=== PATIENT | female | born 1955 | race Caucasian/White ===

== ENCOUNTER 2024-07-27 08:45 | Day surgery (SDC) | payer MEDICARE, BC ==
[2024-06-29 13:24] VITALS: BP 122/76
[~2024-07-27] VITALS: Ht 157.5 cm; Wt 50.0 kg
[~2024-07-27 08:45] MED LIST: CALCIUM GLUCONA60 M1 PO; CEFAZOLIN SODIUM 2 GM/20 ML SYR IV SCH; DEXAMETHASONE SOD PHOS 4 MG/ML VIAL ONE; ESTRACE0.5 MG PO; FAMOTIDINE 20 MG/ 2 ML VIAL ONE; IBLOOD GLUCOSE TEST STRIP 1 EA TEST VI PRN; KETOROLAC TROMETHAMINE 30 MG/ML VIAL ONE; LACTATED RINGER'S 1,000 ML IV ONE; LACTATED RINGER'S 1,000 ML IV SCH; LIDOCAINE HCL 1% 5 ML SDV INJ ONE; METOCLOPRAMIDE HCL 10 MG/2 ML SDV IV PRN; MORPHINE SULFATE 10 MG/ML VIAL IV PRN; MORPHINE SULFATE 4 MG/ML VIAL IV PRN; NALOXONE HCL 0.4 MG SYR IV PRN; OXYBUTYNIN CHLOR5 M1 PO; OXYCODONE/APAP 5/325 TAB PO PRN; PROCHLORPERAZINE EDISYLATE 10 MG/2 ML VIAL IV PRN; PROGESTERONE100 MG PO; PROLIA60 MG/1 ML SUB-Q; TEMAZEPAM15 MG PO; VENLAFAXINE H37.5 MG PO; droPERidol 5 MG/2 ML VIAL IV PRN; fentaNYL citrate 100 MCG/2 ML VIAL ONE; fentaNYL citrate 50 MCG/ML SDV IV PRN; ondansetron HCL 4 MG TAB PO PRN; ondansetron HCL 4 MG/2 ML VIAL IV PRN; ondansetron HCL 4 MG/2 ML VIAL ONE; propofoL 200 MG/20 ML VIAL ONE
[2024-07-27 09:05] VITALS: BP 112/68
[2024-07-27 14:19] VITALS: BP 98/60
--- NOTE | 2024-07-27 14:25 | NUR ---
07/27/24 1425 Yajaira Chin 1354 PT ARRIVED IN PACU NON RESPONSIVE TO NOXIOUS STIMULI WITH OPA IN PLACE. 1356 PT REACTIVE. OPA REMOVED. 1400 PT AWAKE AND TALKING TO STAFF. 1410 AXONICS REP AT BEDSIDE WITH PT'S SISTER.
== END 2024-07-27 14:45 | disposition home or self-care (01) ==
LOC: DS 08:45
PROVIDERS: ATTEND Urology
PROC: 01HY3MZ Insertion of Neurostimulator Lead into Peripheral Nerve, Percutaneous Approach (ICD-10-PCS; principal; 2024-07-27 10:30)
DX: N32.81 Overactive bladder (principal); N39.46 Mixed incontinence; E78.5 Hyperlipidemia, unspecified; G43.909 Migraine, unspecified, not intractable, without status migrainosus; Z79.899 Other long term (current) drug therapy; Z88.0 Allergy status to penicillin; Z88.2 Allergy status to sulfonamides
CPT/HCPCS: 00300; 76000; C1778; C1889; C1897; J0690; J1100; J1885; J2405; J2704; J3010; J7121

== ENCOUNTER 2024-08-10 08:30 | Day surgery (SDC) | payer MEDICARE, BC ==
[~2024-08-10] VITALS: Ht 157.5 cm; Wt 52.3 kg
[~2024-08-10 08:30] MED LIST changes: -DEXAMETHASONE SOD PHOS 4 MG/ML VIAL ONE; -FAMOTIDINE 20 MG/ 2 ML VIAL ONE; -KETOROLAC TROMETHAMINE 30 MG/ML VIAL ONE; -LACTATED RINGER'S 1,000 ML IV ONE; -METOCLOPRAMIDE HCL 10 MG/2 ML SDV IV PRN; -MORPHINE SULFATE 10 MG/ML VIAL IV PRN; -MORPHINE SULFATE 4 MG/ML VIAL IV PRN; -NALOXONE HCL 0.4 MG SYR IV PRN; -OXYCODONE/APAP 5/325 TAB PO PRN; -PROCHLORPERAZINE EDISYLATE 10 MG/2 ML VIAL IV PRN; -droPERidol 5 MG/2 ML VIAL IV PRN; -fentaNYL citrate 100 MCG/2 ML VIAL ONE; -fentaNYL citrate 50 MCG/ML SDV IV PRN; -ondansetron HCL 4 MG TAB PO PRN; -ondansetron HCL 4 MG/2 ML VIAL IV PRN; -ondansetron HCL 4 MG/2 ML VIAL ONE; -propofoL 200 MG/20 ML VIAL ONE
[2024-08-10 08:52] VITALS: BP 133/72
[2024-08-10] MEDS ORDERED: MORPHINE SULFATE 4 MG/ML VIAL IV PRN (09:00)
[2024-08-10] MEDS ORDERED: ondansetron HCL 4 MG/2 ML VIAL IV PRN ×2 (09:00→10:30)
[2024-08-10] MEDS ORDERED: KETOROLAC TROMETHAMINE 30 MG/ML VIAL ONE (10:15)
[2024-08-10] MEDS ORDERED: ACETAMINOPHEN 1,000 MG/100 ML VIAL ONE (10:15)
[2024-08-10] MEDS ORDERED: LIDOCAINE HCL 2% 5 ML SDV ONE (10:15)
[2024-08-10] MEDS ORDERED: propofoL 200 MG/20 ML VIAL ONE (10:15)
[2024-08-10] MEDS ORDERED: IBLOOD GLUCOSE TEST STRIP 1 EA TEST VI PRN (10:30)
[2024-08-10] MEDS ORDERED: droPERidol 5 MG/2 ML VIAL IV PRN (10:30)
[2024-08-10] MEDS ORDERED: fentaNYL citrate 50 MCG/ML SDV IV PRN (10:30)
[2024-08-10] MEDS ORDERED: PROCHLORPERAZINE EDISYLATE 10 MG/2 ML VIAL IV PRN (10:30)
[2024-08-10] MEDS ORDERED: NALOXONE HCL 0.4 MG SYR IV PRN (10:30)
[2024-08-10 11:32] VITALS: BP 98/58
--- NOTE | 2024-08-10 11:42 | NUR ---
08/10/24 1142 Yajaira Chin 1115 PT ARRIVED IN PACU SLEEPY. 1120 AWAKENS TO VERBAL STIMULI. 1125 SITTING UP IN BED. NO C/O'S. 1135 UP TO BATHROOM. VOIDED. BACK IN BED VISITING WITH ELDER VOGEL
== END 2024-08-10 11:55 | disposition home or self-care (01) ==
LOC: DS 08:30
PROVIDERS: ATTEND Urology
PROC: 0JH70MZ Insertion of Stimulator Generator into Back Subcutaneous Tissue and Fascia, Open Approach (ICD-10-PCS; principal; 2024-08-10 10:10)
DX: N32.81 Overactive bladder (principal); N39.46 Mixed incontinence; F43.10 Post-traumatic stress disorder, unspecified; E78.5 Hyperlipidemia, unspecified; Z79.899 Other long term (current) drug therapy; Z88.0 Allergy status to penicillin; Z88.2 Allergy status to sulfonamides
CPT/HCPCS: 01250; C1767; C1787; J0131; J0690; J1885; J2003; J2704